=== PATIENT | female | born 1970 | race Caucasian/White ===

== ENCOUNTER 2020-10-07 05:30 | Day surgery (SDC) | payer BC ==
[~2020-10-07] VITALS: Ht 167.6 cm; Wt 134.1 kg
[2020-10-07 06:36] LABS: HCG UR SG 1.009 (1.003-1.030)
[2020-10-07] MEDS ORDERED: LOSA1TAB22 PO (06:39)
[2020-10-07] MEDS ORDERED: LORA-445 PO (06:39)
[2020-10-07] MEDS ORDERED: CITA20TA9 PO (06:39)
[2020-10-07] MEDS ORDERED: ASPI81TA45 PO (06:39)
[2020-10-07] MEDS ORDERED: [UNRECOGNIZED DRUG - OTHER] PO (06:41)
[2020-10-07] MEDS ORDERED: OXYMETAZOLINE NASAL SPRAY 0.05%,30ML ONE (06:41)
[2020-10-07] MEDS ORDERED: MULT-658 PO (06:41)
[2020-10-07] MEDS ORDERED: ACET-458 PO (06:41)
[2020-10-07] MEDS ORDERED: MELA10TA PO (06:41)
[2020-10-07] MEDS ORDERED: BACITRACIN OINT 500U/GM, 15 GM ONE (06:41)
[2020-10-07] MEDS ORDERED: LIDOCAINE/PF 1%-EPI 1:200K, 30 ML ONE (06:41)
[2020-10-07] MEDS ORDERED: LACTATED RINGERS 1,000 ML IV SCH (07:00)
[2020-10-07] MEDS ORDERED: CHLORHEXIDINE 15 ML UDC MM ONE (07:00)
[2020-10-07] MEDS ORDERED: MIDAZOLAM 1 MG/ML, 2ML ONE (07:04)
[2020-10-07] MEDS ORDERED: FENTANYL PF 250 MCG/5ML ONE (07:04)
[2020-10-07 07:08] VITALS: BP 91/60
[2020-10-07] MEDS ORDERED: PROPOFOL 50 ML ONE (07:20)
[2020-10-07] MEDS ORDERED: MEPERIDINE/PF 25MG/0.5ML IVPush PRN (08:00)
[2020-10-07] MEDS ORDERED: ACETAMINOPHEN 325 MG TABLET PO PRN (08:00)
[2020-10-07] MEDS ORDERED: LIDOCAINE 1%-EPI 1:100K, 30ML INFIL ONE (08:00)
[2020-10-07] MEDS ORDERED: ONDANSETRON 2MG/ML, 2ML IVPush PRN (08:00)
[2020-10-07] MEDS ORDERED: EPHEDRINE 50 MG/ML, 1ML IVPush PRN (08:00)
[2020-10-07] MEDS ORDERED: LABETALOL 5MG/ML, 20ML IV PRN (08:00)
[2020-10-07] MEDS ORDERED: HYDROmorphone 1 MG/ML, 1ML INJ IVPush PRN (08:00)
[2020-10-07] MEDS ORDERED: PROMETHAZINE 25 MG/ML, 1ML IVPush PRN (08:00)
[2020-10-07] MEDS ORDERED: LORazepam 2 MG/ML, 1ML IVPush PRN (08:00)
[2020-10-07] MEDS ORDERED: METHOCARBAMOL 1,000 MG in DEXTROSE 5% 100 ML IV PRN (08:00)
[2020-10-07] MEDS ORDERED: hydrALAzine 20 MG/ML, 1ML IV PRN (08:00)
[2020-10-07] MEDS ORDERED: OXYcodone 5 MG/5 ML ORAL.SOL UDC PO PRN (08:00)
[2020-10-07] MEDS ORDERED: OXYMETAZOLINE NASAL SPRAY 0.05%,30ML NAS ONE (08:02)
[2020-10-07] MEDS ORDERED: BACITRACIN/POLYMYXIN B OPHTH OINT 3.5GM OP ONE (08:06)
[2020-10-07] MEDS ORDERED: ROCURONIUM 10MG/ML,5ML ONE (08:29)
[2020-10-07] MEDS ORDERED: GLYCOPYRROLATE 0.2MG/1ML, 5ML ONE (08:29)
[2020-10-07] MEDS ORDERED: DEXAMETHASONE 4 MG/ML, 1ML ONE (08:29)
[2020-10-07] MEDS ORDERED: CEFAZOLIN 1,000 MG ONE (08:29)
[2020-10-07] MEDS ORDERED: ONDANSETRON 2MG/ML, 2ML ONE (08:29)
[2020-10-07] MEDS ORDERED: NEOSTIGMINE 1 MG/ML, 10ML ONE (08:29)
[2020-10-07] MEDS ORDERED: SUCCINYLCHOLINE 20 MG/ML, 10ML ONE (08:29)
[2020-10-07] MEDS ORDERED: PROPOFOL 10 MG/ML, 20ML ONE (08:29)
[2020-10-07] MEDS ORDERED: LORazepam 2 MG/ML, 1ML ONE (08:43)
[2020-10-07] MEDS ORDERED: FENTANYL PF 100 MCG/2ML ONE (08:58)
[2020-10-07] MEDS: FENTANYL PF 100 MCG/2ML IV PRN ×2 (08:59→09:06)
[2020-10-07] MEDS ORDERED: OXYcodone 5 MG/5 ML ORAL.SOL UDC ONE (09:01)
[2020-10-07] MEDS ORDERED: ACETAMINOPHEN 650 MG/20.3 ML UDC ONE (09:01)
== END 2020-10-07 10:45 | disposition home or self-care (01) ==
LOC: OUT 05:30
PROVIDERS: ATTEND Otolaryngology
DX: J34.2 Deviated nasal septum (principal); J34.3 Hypertrophy of nasal turbinates; J34.89 Other specified disorders of nose and nasal sinuses; G47.33 Obstructive sleep apnea (adult) (pediatric); E66.01 Morbid (severe) obesity due to excess calories; Z20.822 Contact with and (suspected) exposure to COVID-19
CPT/HCPCS: 30140; 30520; 81025; 87635; J0330; J0690; J1100; J2060; J2250; J2405; J2704; J2710; J3010; J7120

== ENCOUNTER → 2021-04-29 | Outpatient (CLI) | payer BC ==
[~2021-04-29] MED LIST: ACET-458 PO; ASPI81TA45 PO; CITA20TA9 PO; LORA-445 PO; LOSA1TAB22 PO; MELA10TA PO; MULT-658 PO; [UNRECOGNIZED DRUG - OTHER] PO
== END | disposition home or self-care (01) ==
LOC: CFH 11:39
PROVIDERS: ATTEND Nurse Practitioner Family
DX: U07.1 COVID-19 (principal); R59.0 Localized enlarged lymph nodes; J18.9 Pneumonia, unspecified organism; I51.7 Cardiomegaly
CPT/HCPCS: 71250